=== PATIENT | female | born 1970 | race Caucasian/White ===

== ENCOUNTER 2017-01-20 06:58 | Day surgery (SDC) | payer OTHER ==
[2017-01-20 08:12] VITALS: BMI 33.6
[2017-01-20] MEDS ORDERED: LIDOCAINE HCL 2% (20ML MULTI-DOSE VIAL) NR ONE (08:20)
[2017-01-20] MEDS ORDERED: ONDANSETRON 4 MG/2 ML VIAL ONE (08:20)
[2017-01-20] MEDS ORDERED: PROPOFOL 20 ML ONE ×3 (08:21)
[2017-01-20 08:46] VITALS: TEMP 97.6
[2017-01-20 09:14] VITALS: PULSE 60
[2017-01-20 14:00] VITALS: BP 119/73
--- NOTE | 2017-01-21 12:06 | PATH ---
Surgical Pathology Report Patient Name: LIANNA HOPPER [facility]. Rec. #: [id number] /Age/Gender: 1970 (Age: 46) / F Account: [id number] Location: U-ENDOSCOPY Taken: 01/20/2017 Received: 01/20/2017 Reported: 01/21/2017 Physicians: Pipe Mo M.D. Specimen(s) Received A: BX ANTRAL ULCER ON FOLD B: BX ANTRUM EROSIONS C: BX BODY D: BX DISTAL ESOPHAGUS Clinical History Epigastric pain Duodenitis, erosive gastritis, hiatal hernia, gastric ulcer in antral fold Final Diagnosis A. STOMACH, ANTRAL ULCER ON FOLD, BIOPSY: GASTRIC ANTRAL MUCOSA WITH REACTIVE GASTROPATHY. IMMUNOSTAIN FOR H. PYLORI IS NEGATIVE. B. STOMACH, ANTRUM, BIOPSY: GASTRIC ANTRAL MUCOSA WITH FOCAL MILD CHRONIC GASTRITIS. IMMUNOSTAIN FOR H. PYLORI IS NEGATIVE. C. STOMACH, BODY, BIOPSY: GASTRIC FUNDIC MUCOSA WITH MILD CHRONIC GASTRITIS. IMMUNOSTAIN FOR H. PYLORI IS NEGATIVE. D. DISTAL ESOPHAGUS, BIOPSY: SQUAMOUS MUCOSA WITH PAPILLOMATOSIS SUGGESTIVE OF REFLUX ESOPHAGITIS. NO INTESTINAL METAPLASIA IDENTIFIED (NO CACERES'S IDENTIFIED). Electronically Signed Ceasar May M.D. Gross Description A. Received in formalin, labeled "biopsy antral ulcer on fold" are 2 pollock, irregular portions of soft tissue measuring 0.1 and 0.5 cm. in greatest dimension. The specimens are submitted in toto in one cassette. B. Received in formalin, labeled "biopsy antrum" is a pollock, irregular portion of soft tissue measuring 0.5 cm. in greatest dimension. The specimen is submitted in toto in one cassette. C. Received in formalin, labeled "biopsy body" is a pollock, irregular portion of soft tissue measuring 0.5 cm. in greatest dimension. The specimen is submitted in toto in one cassette. D. Received in formalin, labeled "biopsy distal esophagus" is a pollock, irregular portion of soft tissue measuring 0.2 cm. in greatest dimension. The specimen is submitted in toto in one cassette. 01/20/2017 saudi01/20/2017
== END 2017-01-20 09:43 | disposition home or self-care (01) ==
LOC: JASU-ENDO 06:58
PROVIDERS: ATTEND Internal Medicine Gastroenterology
PROC: 0DB68ZX Excision of Stomach, Via Natural or Artificial Opening Endoscopic, Diagnostic (ICD-10-PCS; principal; 2017-01-20 08:00)
DX: K29.00 Acute gastritis without bleeding (principal); R10.13 Epigastric pain; K29.80 Duodenitis without bleeding; K44.9 Diaphragmatic hernia without obstruction or gangrene
CPT/HCPCS: 88305-TC; 88342-TC

== ENCOUNTER 2017-05-10 06:55 | Day surgery (SDC) | payer OTHER ==
[2017-05-10 07:53] VITALS: BMI 33.6
[2017-05-10] MEDS ORDERED: ONDANSETRON 4 MG/2 ML VIAL ONE (08:37)
[2017-05-10] MEDS ORDERED: DEXAMETHASONE SOD PHOSPHATE 10 MG/1 ML VIAL ONE (08:38)
[2017-05-10 08:42] VITALS: TEMP 97.8
[2017-05-10 09:37] VITALS: BP 114/70; PULSE 70
--- NOTE | 2017-05-11 12:45 | PATH ---
Surgical Pathology Report Patient Name: LIANNA HOPPER [facility]. Rec. #: [id number] /Age/Gender: 1970 (Age: 46) / F Account: [id number] Location: [facility]ENDOSCOPY Taken: 05/10/2017 Received: 05/10/2017 Reported: 05/11/2017 Physicians: Pipe Mo M.D. Specimen(s) Received A: BX ANTRUM B: BX ESOPHAGUS Clinical History Epigastric pain Distal esophagitis, gastritis Final Diagnosis A. STOMACH, ANTRUM, BIOPSY: MILD CHRONIC GASTRITIS AND REACTIVE GASTROPATHY. IMMUNOSTAIN FOR H. PYLORI IS NEGATIVE. B. DISTAL ESOPHAGUS, BIOPSY: SQUAMOUS MUCOSA WITH PAPILLOMATOSIS SUGGESTIVE OF REFLUX ESOPHAGITIS. NO INTESTINAL METAPLASIA IDENTIFIED (NO CACERES'S IDENTIFIED). Electronically Signed Ceasar May M.D. Gross Description A. Received in formalin, labeled "biopsy antrum" is a pollock, irregular portion of soft tissue measuring 0.4 cm. in greatest dimension. The specimen is submitted in toto in one cassette. B. Received in formalin, labeled "biopsy esophagus" are 2 pollock, irregular portions of soft tissue averaging 0.2 cm. in greatest dimension. The specimens are submitted in toto in one cassette. 05/10/201705/10/2017
== END 2017-05-10 09:35 | disposition home or self-care (01) ==
LOC: JASU-ENDO 06:55
PROVIDERS: ATTEND Internal Medicine Gastroenterology
PROC: 0DB68ZX Excision of Stomach, Via Natural or Artificial Opening Endoscopic, Diagnostic (ICD-10-PCS; 2017-05-10)
PROC: 0DB38ZX Excision of Lower Esophagus, Via Natural or Artificial Opening Endoscopic, Diagnostic (ICD-10-PCS; principal; 2017-05-10 08:00)
DX: K29.70 Gastritis, unspecified, without bleeding (principal); K20.9 Esophagitis, unspecified
CPT/HCPCS: 88305-TC; 88342-TC

== ENCOUNTER 2017-08-21 11:24 | Emergency (ER) | payer OTHER ==
[2017-08-21] MEDS ORDERED: ONDANSETRON 4 MG/2 ML VIAL IVPUSH ONE (11:36)
[2017-08-21] MEDS ORDERED: SODIUM CHLORIDE 1,000 ML IV STA (11:36)
--- NOTE | 2017-08-21 11:42 | PDOC ---
History of Present Illness - General Chief Complaint: Pain Stated Complaint: ABD PAIN Time Seen by Provider: 08/21/17 11:26 Exam Limitations: No Limitations - History of Present Illness Travel History: No Initial Comments: 08/21/17 11:37 46 y/o female with RUQ pain for 1 week, having diarrhea and feeling nauseous. Denies vomiting. Sates pain radiates around the right side to the back. No fever or chills. No SOB or chest pain. Patient denies fall or trauma. No dysuria or rash. Abdominal Pain Onset Location: reports: RUQ, epigastric Pain Radiation: reports: back. denies: no radiation Past History - Past Medical History Allergies/Adverse Reactions: Allergies Allergy/AdvReac Type Severity Reaction Status Date / Time No Known Allergies Allergy Verified 08/21/17 11:32 Home Medications: Ambulatory Orders Omeprazole [Prilosec (RX)] 40 mg PO DAILY 04/18/13 Levothyroxine [Synthroid -] 75 mcg PO DAILY 05/15/16 Ondansetron [Zofran Odt -] 4 mg SL TID #10 od.tablet 08/21/17 Anemia: No Asthma: No Cancer: No Cardiac Disorders: No CVA: No COPD: No CHF: No DVT: No Dementia: No Diabetes: No Dialysis: No GI Disorders: Yes (GERD;DIVERTICULOSIS;ESOPHAGITIS;H/H) Disorders: Yes (KIDNEY STONES) HTN: No Hypercholesterolemia: No Kidney Stones: Yes Liver Disease: No Seizures: No Thyroid Disease: Yes (HYPOHTYROIDISM) - Surgical History Abdominal Surgery: No Appendectomy: No Cardiac Surgery: No Cholecystectomy: No Lung Surgery: No Neurologic Surgery: No Orthopedic Surgery: Yes (BILATERAL Knee Arthroscopy) - Suicide/Smoking/Psychosocial Hx Smoking Status: No Smoking History: Never smoked Have you smoked in the past 12 months: No Number of Cigarettes Smoked Daily: 0 Hx Alcohol Use: No Drug/Substance Use Hx: No Substance Use Type: None Hx Substance Use Treatment: No Review of Systems - Review of Systems Able to Perform ROS?: Yes Is the patient limited Citizen [place] proficient: No Constitutional: No: Chills, Fever Respiratory: No: Cough, Shortness of Breath Cardiac (ROS): No: Chest Pain ABD/GI: Yes: Diarrhea, Nausea. No: Vomiting Musculoskeletal: Yes: Back Pain. No: Muscle Weakness All Other Systems: Reviewed and Negative *Physical Exam - Physical Exam General Appearance: Yes: Nourished, Appropriately Dressed. No: Apparent Distress HEENT: positive: EOMI, SIMIN, Normal ENT Inspection, Normal Voice Neck: positive: Trachea midline, Normal Thyroid, Supple. negative: Tender Respiratory/Chest: positive: Lungs Clear, Normal Breath Sounds. negative: Chest Tender, Respiratory Distress Cardiovascular: positive: Regular Rhythm, Regular Rate, S1, S2. negative: Edema , JVD, Murmur Vascular Pulses: Femoral (R): 4+, Femoral (L): 4+, Carotid (R): 4+, Carotid (L) : 4+, Dorsalis-Pedis (R): 4+, Doralis-Pedis (L): 4+ Gastrointestinal/Abdominal: positive: Normal Bowel Sounds, Tender (RUQ tenderness, no rash, mild mid epigastric tenderness +BS), Flat, Soft. negative : Organomegaly, Pulsatile Mass Lymphatic: negative: Adenopathy, Tenderness, Other Musculoskeletal: positive: Normal Inspection. negative: CVA Tenderness Extremity: positive: Normal Capillary Refill, Normal Inspection, Normal Range of Motion. 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 Pt is in agreement with plan. After treatment pt is feeling better, will place on Zofran Fluids, rest Will need follow up with GI If worsen return to ER Case endorsed to Dr. Goff, await US report *DC/Admit/Observation/Transfer Diagnosis at time of Disposition: Abdominal pain Qualifiers: Abdominal location: right upper quadrant Qualified Code(s): R10.11 - Right upper quadrant pain - Discharge Dispostion Disposition: HOME Condition at time of disposition: Good Admit: No - Prescriptions Prescriptions: Ondansetron [Zofran Odt -] 4 mg SL TID #10 od.tablet - Referrals Referrals: Nahomi Antonio [Primary Care Provider] - Win Houser MD [Staff Physician] - - Patient Instructions Printed Discharge Instructions: DI for Abdominal Pain-Adult Additional Instructions: Fluids, rest, bland diet Zofran 4 mg ODT 1 tab every 8 hr as needed Follow up with Laboratory Assistant If worsen return to ER - Post Discharge Activity
[2017-08-21 11:44] VITALS: BP 136/73; PULSE 58; TEMP 97.7; BMI 32.1
[2017-08-21 11:50] LABS: URINE APPEARANCE Clear; URINE BILIRUBIN Negative (NEGATIVE); URINE BLOOD Trace-intact (NEGATIVE); URINE COLOR AMBER; URINE GLUCOSE (UA) Negative (NEGATIVE); URINE KETONE Negative (NEGATIVE); URINE NITRITE Negative (NEGATIVE); URINE PROTEIN Trace (NEGATIVE); URINE UROBILINOGEN 0.2 (0.2-1.0)
[2017-08-21] MEDS ORDERED: ONDANSETRON 4 MG/2 ML VIAL ONE (11:55)
[2017-08-21 12:05] LABS: EPI CELLS FEW /HPF; HCG,QUALITATIVE URINE NEGATIVE; URINE AMORPHOUS SEDIMENT FEW; URINE RBC 0-3 /hpf (0-3)
[2017-08-21 12:07] LABS: BASO % 0.7 % (0-2.0); EOS % 1.3 % (0-4.5); HEMATOCRIT 45.3 % (32.4-45.2); HEMOGLOBIN 14.6 GM/dl (10.7-15.3); LYMPH % 40.9 % (8-40); MCH 28.2 pg (25.7-33.7); MCHC 32.3 g/dl (32.0-36.0); MEAN CELL VOLUME 87.2 fl (80-96); MEAN PLT VOLUME 8.4 fl (7.5-11.1); MONO % 7.7 % (3.8-10.2); NEUT % 49.4 % (42.8-82.8); PLATELET COUNT 206 K/MM3 (134-434); RDW 12.5 % (11.6-15.6); WHITE BLOOD COUNT 5.8 K/mm3 (4.0-10.8)
[2017-08-21 12:22] LABS: ALBUMIN 4.2 g/dl (3.5-5.0); ALK PHOS 74 U/L (32-92); ANION GAP 7 (8-16); BLOOD UREA NITROGEN 18 mg/dl (7-18); CALCIUM 9.2 mg/dl (8.4-10.2); CHLORIDE 105 mmol/L (98-107); CO2 27 mmol/L (22-28); CREATININE 0.7 mg/dl (0.6-1.3); GLUCOSE,RANDOM 84 mg/dl (74-106); LIPASE 16 U/L (22-51); POTASSIUM 3.9 mmol/L (3.5-5.1); SGOT/AST 21 U/L (10-42); SGPT/ALT 13 U/L (10-40); SODIUM 139 mmol/L (136-145); TOT PROT 7.4 g/dl (6.4-8.3)
--- NOTE | 2017-08-21 15:01 | PDOC ---
*Physical Exam - Vital Signs Last Vital Signs Temp Pulse Resp BP Pulse Ox 97.7 F 58 L 15 136/73 100 08/21/17 11:26 08/21/17 11:26 08/21/17 11:26 08/21/17 11:26 08/21/17 11:26 ED Treatment Course - LABORATORY CBC & Chemistry Diagram: 08/21/17 12:03 08/21/17 12:03 - ADDITIONAL ORDERS Additional order review: Laboratory Results 08/21/17 08/21/17 12:03 11:44 Sodium 139 Potassium 3.9 Chloride 105 Carbon Dioxide 27 Anion Gap 7 L BUN 18 Creatinine 0.7 Creat Clearance w eGFR > 60 Random Glucose 84 Calcium 9.2 Total Bilirubin 1.0 D AST 21 ALT 13 Alkaline Phosphatase 74 Total Protein 7.4 Albumin 4.2 Lipase 16 L Urine Color Hayley Urine Appearance Clear Urine pH 6.0 Ur Specific [place] 1.025 Urine Protein Trace Urine Glucose (UA) Negative Urine Ketones Negative Urine Blood Trace-intact H Urine Nitrite Negative Urine Bilirubin Negative Urine Urobilinogen 0.2 Ur Leukocyte Esterase Trace H Urine RBC 0-3 Urine WBC 2-5 Ur Epithelial Cells Few Amorphous Sediment Few Urine HCG, Qual Negative 08/21/17 12:03 RBC 5.20 MCV 87.2 MCHC 32.3 RDW 12.5 MPV 8.4 Neutrophils % 49.4 Lymphocytes % 40.9 H Monocytes % 7.7 Eosinophils % 1.3 Basophils % 0.7 - Medications Given in the ED: ED Medications Discontinued Medications Generic Name Dose Route Start Last Admin Trade Name Freq PRN Reason Stop Dose Admin Sodium Chloride 1,000 mls @ 1,000 mls/hr 08/21/17 11:36 08/21/17 12:00 Normal Saline - IV 08/21/17 12:35 1,000 mls/hr ASDIR STA Administration Ondansetron HCl 4 mg 08/21/17 11:36 08/21/17 12:00 Zofran Injection IVPUSH 08/21/17 11:37 4 mg ONCE ONE Administration Medical Decision Making - Medical Decision Making 08/21/17 14:58 Patient was seen by Dr. Samantha de la rosa and endorsed to me at 2 PM today. Patient presents complaining of 5 days of frequent watery diarrhea. She also has ongoing nausea, gets worse when she tries to eat. Eating also stimulates episodes of diarrhea. She denies fever. She did have some upper abdominal discomfort in the midepigastric region. She has a history of prior peptic ulcer disease, for which she takes Prilosec. Repeat examination at this time shows normal bowel sounds, abdomen is soft and nontender. There is no epigastric tenderness and no right upper quadrant tenderness. Chavez's sign is negative. There is no lower abdominal tenderness or McBurney's tenderness. Laboratory workup was reviewed. White blood cell count is normal at 5. Chemistries and liver function tests are unremarkable. Lipase is normal. Urinalysis is unremarkable. Ultrasound of the abdomen shows normal gallbladder and liver. Normal portable blood flow. Normal kidney. No acute pathology identified. Impression: Likely viral gastroenteritis with diarrhea. No serious cause of abdominal pain has been identified. Repeat examination is benign. Patient is stable for discharge with follow-up to her primary physician. *DC/Admit/Observation/Transfer Diagnosis at time of Disposition: Abdominal pain Qualifiers: Abdominal location: right upper quadrant Qualified Code(s): R10.11 - Right upper quadrant pain - Discharge Dispostion Disposition: HOME Condition at time of disposition: Good Admit: No - Prescriptions Prescriptions: Ondansetron [Zofran Odt -] 4 mg SL TID #10 od.tablet - Referrals Referrals: Win Houser MD [Staff Physician] - Nahomi Antonio [Primary Care Provider] - - Patient Instructions Printed Discharge Instructions: DI for Abdominal Pain-Adult Additional Instructions: Fluids, rest, bland diet. Continue Prilosec. Zofran 4 mg ODT 1 tab every 8 hr as needed for nausea. Follow up with [facility], Dr. Win Houser. If worsen return to ER. - Post Discharge Activity
== END 2017-08-21 15:06 | disposition home or self-care (01) ==
LOC: FER 11:24
PROC: 3E033GC Introduction of Other Therapeutic Substance into Peripheral Vein, Percutaneous Approach (ICD-10-PCS; principal; 2017-08-21)
PROC: 3E0337Z Introduction of Electrolytic and Water Balance Substance into Peripheral Vein, Percutaneous Approach (ICD-10-PCS; 2017-08-21)
DX: R10.11 Right upper quadrant pain (principal)
CPT/HCPCS: 36415; 76705-TC; 80053; 81003; 81015; 83690; 84703; 85025; 99282-25

== ENCOUNTER 2017-10-07 21:16 | Emergency (ER) | payer OTHER ==
--- NOTE | 2017-10-07 21:34 | PDOC ---
Rapid Medical Evaluation Time Seen by Provider: 10/07/17 21:30 Medical Evaluation: Allergies Allergy/AdvReac Type Severity Reaction Status Date / Time No Known Allergies Allergy Verified 08/21/17 11:32 10/07/17 21:32 Pt c/o: rt sided abd pain since 6 am, + nausea/diarrhea, no urinary complaints, no fever Pt on brief exam: vss, no rt cva tenderness Pt ordered for : ua, cbc, comp Pt to proceed to the ED Discharge Disposition - Diagnosis Abdominal pain - Referrals - Patient Instructions - Post Discharge Activity
[2017-10-07 21:37] VITALS: BP 107/80; PULSE 91; TEMP 97.9; BMI 31.8
[2017-10-07 21:51] LABS: BASO % 0.2 % (0-2.0); EOS % 0.7 % (0-4.5); HEMATOCRIT 41.5 % (32.4-45.2); HEMOGLOBIN 13.9 GM/dL (10.7-15.3); MCH 29.1 pg (25.7-33.7); MCHC 33.4 g/dl (32.0-36.0); MEAN CELL VOLUME 87.2 fl (80-96); MEAN PLT VOLUME 9.1 fl (7.5-11.1); MONO % 6.2 % (3.8-10.2); NEUT % 76.9 % (42.8-82.8); PLATELET COUNT 193 K/MM3 (134-434); RBC 4.76 M/mm3 (3.60-5.2); RDW 14.5 % (11.6-15.6); WHITE BLOOD COUNT 12.2 K/mm3 (4.0-10.0)
[2017-10-07 21:52] LABS: URINE APPEARANCE CLEAR; URINE BILIRUBIN NEGATIVE (NEGATIVE); URINE BLOOD 2+ (NEGATIVE); URINE COLOR YELLOW; URINE GLUCOSE (UA) NEGATIVE (NEGATIVE); URINE KETONE NEGATIVE (NEGATIVE); URINE NITRITE NEGATIVE (NEGATIVE); URINE PROTEIN NEGATIVE (NEGATIVE); URINE UROBILINOGEN NEGATIVE mg/dL (0.2-1.0)
[2017-10-07 21:53] LABS: URINE LEUK ESTERASE 2+ (NEGATIVE)
[2017-10-07 21:55] LABS: EPI CELLS RARE /HPF (FEW); URINE MUCUS RARE
--- NOTE | 2017-10-07 22:11 | PDOC ---
History of Present Illness - General History Source: Patient Exam Limitations: No Limitations - History of Present Illness Initial Comments: 10/08/17 01:41 The patient is a 46-year-old female, with significant past medical history of chronic back pain s/p laminectomy L5-S1, kidney stones, and hypothyroidism, who presents to the emergency room complaining of epigastric pain.The patient was having dinner tonight and suddenly developed this sharp pain that she states is constant, increasing in intensity at times, 6/10 in severity, and accompanied by shortness of breath, chills, nausea, and vomiting. She denies eating anything out of the ordinary. She also reports having multiple episodes of watery, nonbloody diarrhea tonight. She had 5 episodes while in the ED waiting room. The patient follows up with a GI doctor for peptic ulcer disease ( diagnosed back in March 2017). She takes Nexium as needed. The pain she is experiencing today is different than the pain shes experienced from the ulcers; her current pain is much more intense and prolonged. Pt denies any ches tpain, fever/chills, DU. The patient denies any dysuria or hematuria. Denies any fever or cough. Pt denies any melena, bpr. Pt denies any leg swelling, hemoptysis, cough.. Allergies: NKA Surgical Hx: partial hysterectomy, bilateral knee arthroscopy, L5-S1 laminectomy PMD: Dr. Nahomi Antonio Urologist: Dr. Denzel Casillas <Brenda Crow - Last Filed: 10/08/17 01:41> <Nolberto Brothers - Last Filed: 10/08/17 02:33> - General Chief Complaint: Pain Stated Complaint: ABD PAIN Time Seen by Provider: 10/07/17 21:30 Past History <Brenda Crow - Last Filed: 10/08/17 01:41> - Past Medical History Anemia: No Asthma: No Cancer: No Cardiac Disorders: No CVA: No COPD: No CHF: No DVT: No Dementia: No Diabetes: No Dialysis: No GI Disorders: Yes (GERD;DIVERTICULOSIS;ESOPHAGITIS;H/H) Disorders: Yes (KIDNEY STONES) HTN: No Hypercholesterolemia: No Kidney Stones: Yes Liver Disease: No Seizures: No Thyroid Disease: Yes (HYPOHTYROIDISM) - Surgical History Abdominal Surgery: No Appendectomy: No Cardiac Surgery: No Cholecystectomy: No Lung Surgery: No Neurologic Surgery: No Orthopedic Surgery: Yes (BILATERAL Knee Arthroscopy) - Suicide/Smoking/Psychosocial Hx Smoking Status: No Smoking History: Never smoked Have you smoked in the past 12 months: No Number of Cigarettes Smoked Daily: 0 Information on smoking cessation initiated: No Hx Alcohol Use: No Drug/Substance Use Hx: No Substance Use Type: None Hx Substance Use Treatment: No <DeneenNolberto - Last Filed: 10/08/17 02:33> - Past Medical History Allergies/Adverse Reactions: Allergies Allergy/AdvReac Type Severity Reaction Status Date / Time No Known Allergies Allergy Verified 10/07/17 21:33 Home Medications: Ambulatory Orders Levothyroxine [Synthroid -] 75 mcg PO DAILY 05/15/16 Esomeprazole Mag Trihydrate [NexIUM for SUSP] 40 mg PO DAILY 10/07/17 Sucralfate [Carafate -] 1 gm PO TID #15 tablet 10/08/17 Review of Systems - Review of Systems Able to Perform ROS?: Yes Comments:: 10/08/17 01:42 All other systems reviewed and are negative except noted in HPI <Brenda Crow - Last Filed: 10/08/17 01:41> *Physical Exam - Vital Signs Last Vital Signs Temp Pulse Resp BP Pulse Ox 97.9 F 91 H 18 107/80 99 10/07/17 21:33 10/07/17 21:33 10/07/17 21:33 10/07/17 21:33 10/07/17 21:33 - Physical Exam Comments: 10/08/17 01:42 GENERAL: The patient is awake, alert, and fully oriented, Nontoxic - in no acute distress. HEAD: Normocephalic, atraumatic. EYES: extraocular movements intact, sclera anicteric, conjunctiva clear. ENT: Normal voice, Moist mucous membranes. NECK: Normal range of motion, supple LUNGS: Breath sounds equal, clear to auscultation bilaterally. No wheezes, no rhonchi, no rales. HEART: Regular rate and rhythm, without murmur, rub or gallop. ABDOMEN: (+)Mild right upper quadrant tenderness. Soft. No guarding, no rebound. No CVA tenderness EXTREMITIES: Normal range of motion, no edema. No clubbing or cyanosis. No cords, erythema, or tenderness. NEUROLOGICAL: No facial assymetry, Normal speech, PSYCH: Normal mood, normal affect. SKIN: Warm, Dry, normal turgor, <TristinBrenda - Last Filed: 10/08/17 01:41> - Vital Signs Last Vital Signs Temp Pulse Resp BP Pulse Ox 97.9 F 91 H 18 107/80 99 10/07/17 21:33 10/07/17 21:33 10/07/17 21:33 10/07/17 21:33 10/07/17 21:33 <Nolberto Brothers - Last Filed: 10/08/17 02:33> Heart Score/ECG Review - ECG Impressions Comment:: 10/08/17 02:32 Twelve-lead EKG was performed and reviewed by me. There is normal sinus rhythm with a normal rate. Rate of 76 The axis is normal. The intervals are normal. There is normal R wave progression There are no ST or T wave abnormalities. Impression: Normal twelve-lead EKG <Nolberto Brothers - Last Filed: 10/08/17 02:33> ED Treatment Course - LABORATORY CBC & Chemistry Diagram: 10/07/17 21:41 10/07/17 21:41 - ADDITIONAL ORDERS Additional order review: Laboratory Results 10/07/17 10/07/17 10/07/17 22:12 21:41 21:41 Sodium 141 Potassium 3.5 Chloride 106 Carbon Dioxide 28 Anion Gap 7 L BUN 26 H Creatinine 0.8 Creat Clearance w eGFR > 60 Random Glucose 103 Calcium 8.6 Total Bilirubin 0.5 D AST 17 ALT 19 Alkaline Phosphatase 101 Total Protein 7.6 Albumin 4.0 Lipase 104 Urine Color Yellow Urine Appearance Clear Urine pH 5.0 Ur Specific [place] 1.028 Urine Protein Negative Urine Glucose (UA) Negative Urine Ketones Negative Urine Blood 2+ H Urine Nitrite Negative Urine Bilirubin Negative Urine Urobilinogen Negative Ur Leukocyte Esterase 2+ H Urine WBC (Auto) 19 Urine RBC (Auto) 4 Ur Epithelial Cells Rare Urine Mucus Rare 10/07/17 21:41 RBC 4.76 MCV 87.2 MCHC 33.4 RDW 14.5 MPV 9.1 Neutrophils % 76.9 D Lymphocytes % 16.0 D Monocytes % 6.2 Eosinophils % 0.7 Basophils % 0.2 - Medications Given in the ED: ED Medications Discontinued Medications Generic Name Dose Route Start Last Admin Trade Name Rj PRN Reason Stop Dose Admin Al Hydroxide/Mg Hydroxide 30 ml 10/07/17 22:17 10/07/17 22:42 Mylanta Suspension - PO 10/07/17 22:18 30 ml ONCE ONE Administration Famotidine/Sodium Chloride 20 50 mls @ 100 mls/hr 10/07/17 22:17 10/07/17 22: 42 mg/ Miscellaneous IVPB 10/07/17 22:46 100 mls/hr ONCE ONE Administration Sodium Chloride 1,000 mls @ 1,000 mls/hr 10/07/17 22:15 10/07/17 22:41 Normal Saline - IV 10/07/17 23:14 1,000 mls/hr .Q1H ONE Administration Ondansetron HCl 4 mg 10/07/17 22:15 10/07/17 22:42 Zofran Injection IVPB 10/07/17 22:16 4 mg ONCE ONE Administration <Brenda Crow - Last Filed: 10/08/17 01:41> - LABORATORY CBC & Chemistry Diagram: 10/07/17 21:41 10/07/17 21:41 - ADDITIONAL ORDERS Additional order review: Laboratory Results 10/07/17 21:41 Urine Color Yellow Urine Appearance Clear Urine pH 5.0 Ur Specific [place] 1.028 Urine Protein Negative Urine Glucose (UA) Negative Urine Ketones Negative Urine Blood 2+ H Urine Nitrite Negative Urine Bilirubin Negative Urine Urobilinogen Negative Ur Leukocyte Esterase 2+ H Urine WBC (Auto) 19 Urine RBC (Auto) 4 Ur Epithelial Cells Rare Urine Mucus Rare 10/07/17 21:41 RBC 4.76 MCV 87.2 MCHC 33.4 RDW 14.5 MPV 9.1 Neutrophils % 76.9 D Lymphocytes % 16.0 D Monocytes % 6.2 Eosinophils % 0.7 Basophils % 0.2 <Nolberto Brothers - Last Filed: 10/08/17 02:33> Medical Decision Making - Medical Decision Making 10/07/17 22:08 46y F hx of hypothyroidism, PUD, kidney stones, presents with epigastric pain radiating to the RUQ since 6pm. Pt was eating dinner then started having epgiastric pain, pain is constant since 6pm, but sometimes increases to 10/10. associated nausea and intermittent episodes of vomiting when the pain worsens. vomiting is food contents, pt also notes several episodes of diarrhea since 7pm - watery, nonbloody. denies any cp, dysuria, hematuria, on exam pt has minimal tenderness in the RUQ, soft, she is otherwise well appearingi nno distress suspect gastroenteritis vs. gsatritis vs pancreatitis,, gb disease pt had RUQ US lsat month taht was negative 10/08/17 00:40 pt feeling improved abd soft nontender suspect sypmtmos secondary to gastroenteritis will dc with supportive care will aslo give some carafate as possible due to her ulcer return precautions were dsicussed I discussed the physical exam findings, ancillary test results and final diagnoses with the patient. I answered all of the patient's questions. The patient was satisfied with the care received and felt comfortable with the discharge plan and treatment plan. The patient will call their primary care physician within 24 hours to arrange follow-up and will return to the Emergency Department with any new, persistent or worsening symptoms. <Nolberto Brothers - Last Filed: 10/08/17 02:33> *DC/Admit/Observation/Transfer - Attestations Scribe Attestion: 10/08/17 01:42 Documentation prepared by Brenda Crow, acting as medical doctor md/medical director for Nolberto Brothers MD. <Brenda Crow - Last Filed: 10/08/17 01:41> - Discharge Dispostion Admit: No <Nolberto Brothers - Last Filed: 10/08/17 02:33> Diagnosis at time of Disposition: Gastroenteritis Abdominal pain Qualifiers: Abdominal location: epigastric Qualified Code(s): R10.13 - Epigastric pain - Discharge Dispostion Disposition: HOME Condition at time of disposition: Improved - Prescriptions Prescriptions: Sucralfate [Carafate -] 1 gm PO TID #15 tablet - Referrals Referrals: Nahomi Antonio [Primary Care Provider] - Pipe Mo MD [Staff Physician] - - Patient Instructions Printed Discharge Instructions: DI for Viral Gastroenteritis -- Adult, DI for Epigastric Pain Additional Instructions: Return to the emergency department immediately with ANY new, persistent or worsening symptoms including worsening abdominal pain, fevers, inability to tolerate oral intake, chest pain, shortness of breath or any other concerns. Stay well hydrated. You MUST call and follow up with your doctor tomorrow. Your emergency department visit is not complete without a followup with your doctor for reevaluation. Please make sure your doctor reviews the results of your emergency evaluation. Print Language: GERMAN
[2017-10-07 22:15] LABS: ANION GAP 7 (8-16); BILIRUBIN,TOTAL 0.5 mg/dL (0.2-1.0); BLOOD UREA NITROGEN 26 mg/dL (7-18); CALCIUM 8.6 mg/dL (8.5-10.1); CHLORIDE 106 mmol/L (98-107); CO2 28 mmol/L (21-32); CREATININE 0.8 mg/dL (0.55-1.02); GLUCOSE,RANDOM 103 mg/dL (74-106); POTASSIUM 3.5 mmol/L (3.5-5.1); SGOT/AST 17 U/L (15-37); SGPT/ALT 19 U/L (12-78); SODIUM 141 mmol/L (136-145); TOT PROT 7.6 g/dl (6.4-8.2)
[2017-10-07] MEDS ORDERED: SODIUM CHLORIDE 1,000 ML IV ONE (22:15)
[2017-10-07] MEDS ORDERED: ONDANSETRON 4 MG/2 ML VIAL IVPB ONE (22:15)
[2017-10-07 22:16] LABS: ALK PHOS 101 U/L (45-117)
[2017-10-07] MEDS ORDERED: FAMOTIDINE 20 MG/50 ML IVPB 20 MG in PREMIX 50 IVPB ONE (22:17)
[2017-10-07] MEDS ORDERED: MAG HYDROX/AL HYDROX/SIMETH 355 ML ORAL.SUSP PO ONE (22:17)
[2017-10-07] MEDS ORDERED: MAG HYDROX/AL HYDROX/SIMETH 30 ML UNIT-DOSE CUP ONE (22:22)
[2017-10-07] MEDS ORDERED: ONDANSETRON 4 MG/2 ML VIAL ONE (22:22)
[2017-10-07] MEDS ORDERED: FAMOTIDINE 20 MG/50 ML IVPB 20 MG/50 ML MG IVPB ONE (22:22)
--- NOTE | 2017-10-08 10:02 | EKG ---
Test Reason : Blood Pressure : / mmHG Vent. Rate : 076 BPM Atrial Rate : 076 BPM P-R Int : 150 ms QRS Dur : 080 ms QT Int : 352 ms P-R-T Axes : 057 077 054 degrees QTc Int : 396 ms POOR DATA QUALITY, INTERPRETATION MAY BE ADVERSELY AFFECTED NORMAL SINUS RHYTHM NORMAL ECG NO PREVIOUS ECGS AVAILABLE Confirmed by KIRAN CAMERON MD ([id number]) on 10/08/2017 10:02:09 AM Referred By: Confirmed By:KIRAN CAMERON MD
== END 2017-10-08 00:52 | disposition home or self-care (01) ==
LOC: JER 21:16
PROC: 3E033GC Introduction of Other Therapeutic Substance into Peripheral Vein, Percutaneous Approach (ICD-10-PCS; principal; 2017-10-07)
DX: K52.9 Noninfective gastroenteritis and colitis, unspecified (principal)
CPT/HCPCS: 36415; 80053; 81003; 81015; 83690; 85025; 93005; 93010; 99283-25